=== PATIENT | male | born 1940 | race Caucasian/White ===

== ENCOUNTER 2017-11-12 08:23 | Inpatient (IN) | payer OTHER ==
[~2017-11-12] VITALS: Ht 175.3 cm; Wt 76.7 kg
[~2017-11-12 08:23] MED LIST: CEPHALEXIN500 M1 PO; DAILY VITAMIN1 EAC3 PO; KEFLEX500 MG PO; LISINOPRIL2.5 MG PO; METOPROLOL TART25 MG PO; NAPROXEN250 MG PO; NEXIUM40 MG PO; SIMVASTATIN40 MG PO; THIAMINE HCL100 MG PO; ULTRACET TABLE1 EACH PO; VITAMIN B-121000 MC1 PO; VITAMIN C500 M1 PO
[2017-11-12] MEDS: ASPIRIN 81 MG CHEW TAB PO ONE ×2 (08:38→08:45)
[2017-11-12 08:39] LABS: BASOPHILS # (AUTO) 0.1 (0.0-0.1); BASOPHILS % 0.4 % (0.0-1.0); EOSINOPHILS # (AUTO) 0.7 (0.0-0.4); EOSINOPHILS % 4.2 % (0.0-6.0); HEMATOCRIT 35.7 % (38.2-49.6); HEMOGLOBIN 11.9 g/dL (14.0-18.0); LYMPHOCYTES # (AUTO) 0.8 (1.0-3.2); LYMPHOCYTES % 5.1 % (18.0-39.1); MEAN CORPUSCULAR HEMOGLOBIN 28.9 pg (28-32); MEAN CORPUSCULAR HGB CONC 33.3 g/dL (31-35); MEAN CORPUSCULAR VOLUME 86.7 fL (81-99); MONOCYTES # (AUTO) 1.4 (0.2-0.8); MONOCYTES % 8.3 % (4.4-11.3); NEUTROPHILS # (AUTO) 13.6 (2.1-6.9); NEUTROPHILS % 81.5 % (38.7-80.0); PLATELET COUNT 356 x10e3/uL (140-360); RED BLOOD COUNT 4.12 x10e6/uL (4.3-5.7); RED CELL DISTRIBUTION WIDTH 13.6 % (11.7-14.4)
[2017-11-12 09:00] LABS: ALANINE AMINOTRANSFERASE 9 IU/L (0-55); ALBUMIN 2.6 g/dL (3.5-5.0); ALBUMIN/GLOBULIN RATIO 0.6 (0.8-2.0); ALKALINE PHOSPHATASE 68 IU/L (40-150); ANION GAP 15.6 mmol/L (8-16); BLOOD UREA NITROGEN 9 mg/dL (7-26); BUN/CREATININE RATIO 15 (6-25); CALCIUM 8.9 mg/dL (8.4-10.2); CARBON DIOXIDE 21 mmol/L (22-29); CHLORIDE 104 mmol/L (98-107); CREATINE KINASE 73 IU/L (30-200); CREATININE, SERUM 0.59 mg/dL (0.72-1.25); EST GLOMERULAR FILTRATION RATE > 60 ML/MIN (60-); GLUCOSE 156 mg/dL (74-118); LIPASE 7 U/L (8-78); POTASSIUM 3.6 mmol/L (3.5-5.1); SODIUM 137 mmol/L (136-145)
--- NOTE | 2017-11-12 10:23 | Diagnostic Imaging Report ---
PROCEDURE: CT scan of the chest WITH intravenous contrast, using pulmonary emboli protocol. TECHNIQUE: The chest was scanned utilizing a multidetector helical scanner from the lung apex through the level of the adrenal glands after the IV administration of 75 cc of Isovue 370. Coronal and sagittal multiplanar reformations were obtained. DLP: 541.94 mGy-cm COMPARISON: Chest x-ray dated 02/06/2014 INDICATIONS: SUDDEN ONSET SHORTNESS OF BREATH FINDINGS: Lines/tubes: None. Lungs and Airways: Severe changes of emphysema with scattered areas of bronchiectasis and pulmonary fibrosis. New mixed solid and cystic consolidation involving the right upper lobe. No CTA evidence of pulmonary emboli. Pleura: The pleural spaces are clear. Heart and mediastinum: The thyroid gland is normal. No significant mediastinal, hilar or axillary lymphadenopathy is seen. The heart and pericardium are within normal limits. Soft tissues: Normal. Abdomen: Limited contrast-enhanced views of the upper abdomen show no abnormality within the visualized liver, spleen, pancreas or kidneys. Small calcified gall stone. The adrenal glands are normal. Bones: Degenerative changes of the spine and shoulders. IMPRESSION: 1. No CTA evidence of pulmonary emboli. 2. Severe emphysematous changes with bronchiectasis and pulmonary fibrosis. 3. Compared to a prior chest x-ray there is new mixed cystic and solid consolidation in the right upper lobe. 4. Tiny calcified gallstone. Miah Maldonado D.O. Dictated by: Miah Maldonado D.O. on 11/12/2017 at 10:28 Electronically approved by: Miah Maldonado D.O. on 11/12/2017 at 10:28
[2017-11-12] MEDS ORDERED: VANCOMYCIN 1GM/NS 250 ML 250 ML IV ONE (11:45)
[2017-11-12] MEDS ORDERED: CEFEPIME HCL 1 GM VIAL IV ONE (12:00)
[2017-11-12] MEDS ORDERED: SODIUM CHLORIDE 0.9% 100 ML 100 ML ONE (12:47)
[2017-11-12] MEDS ORDERED: IOPAMIDOL 370 MG/ML 200 ML INFUS..BTL INJ ONE (12:47)
--- NOTE | 2017-11-12 14:58 | Consultation ---
DATE OF CONSULTATION: November 12, 2017 PULMONARY CONSULTATION Patient of [facility], Dr. Johnson, Dr. Bolanos. Charming but unfortunate 76-year-old gentleman, admitted with cough, progressive shortness of breath for 5 days. Cough productive of green sputum. He was last seen in the office in July of last year. 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 He has a history of diverticular disease, history of NC in 2017 and had a coronary stent. HE IS ALLERGIC TO ZETIA AND METFORMIN. His home medications include Keflex, B12, Nexium, lisinopril, Lopressor, Zocor, Naprosyn. He has had a ventral hernia repair. Smoked 1-1/2 packs a day for 40 years but has quit. 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 Has been losing weight. Accompanied by his . Seen in the emergency room. PHYSICAL EXAMINATION GENERAL: A frail white male in good spirits. VITAL SIGNS: Afebrile. Pulse 82, respirations 20, blood pressure 106/64. HEAD: Normocephalic, atraumatic. EYES: Extraocular movements intact. LUNGS: Bilateral rhonchi. HEART: Regular rhythm. ABDOMEN: Nontender. EXTREMITIES: Chronic wound tibia. Anemia apparently of chronic disease. Hemoglobin 11.9. Normal indices. White count elevated at 16.61. CT scan reveals a cavity in the right upper lobe. He has had bullous changes and fibrosis in the past. This may represent pneumonia surrounding a bullae but true cavity is suspected. Will obtain sputum studies, QuantiFERON test, plan a bronchoscopy. Will attempt to obtain diagnosis with sputum studies. Agree with empiric antibiotics. Thank you for this kind referral. Job#: [id number] JALEESA
[2017-11-12] MEDS ORDERED: ALBUTEROL/IPRATROPIUM 3 ML NEB NEB PRN (17:30)
[2017-11-12] MEDS ORDERED: BENZONATATE 100 MG CAP PO PRN (17:30)
--- NOTE | 2017-11-12 17:56 | History and Physical ---
PCP: Dr. Hang Johnson CHIEF COMPLAINT: Shortness of breath, wheezing and cough for the past week. HISTORY: Patient is a 76-year-old male with increasing cough and shortness breath for the past week. Cough is productive of green sputum. The patient was last seen by Dr. Vasques back in July last year. The patient does have chronic osteomyelitis of the tibia years and now on therapy with Keflex. He also has diverticular disease. He also has COPD. The patient was an ex-smoker. He is otherwise stable at this time. PAST MEDICAL HISTORY: COPD, diabetes, hypertension, chronic osteomyelitis as above, on chronic suppression treatment, dyslipidemia, osteoarthritis. PAST SURGICAL HISTORY: Repair of incarcerated of ventral hernia with mesh. SOCIAL HISTORY: The patient lives at home. ALLERGIES: NO KNOWN ALLERGY. HOME MEDICATIONS: List is reviewed. REVIEW OF SYSTEMS: Shortness of breath, productive cough, wheezing, and fever. PHYSICAL EXAMINATION VITAL SIGNS: Temperature is 98, blood pressure 131/86, pulse rate 82, respirations 22. GENERAL: The patient is not in acute distress. He is awake. HEENT: Normocephalic, atraumatic and anicteric. NECK: Supple grossly. PULMONARY: Bilateral coarses and rhonchi. Diminished breath sounds. CARDIOVASCULAR: S1 and S2. Regular rate and rhythm. ABDOMEN: Soft. Positive bowel sounds. Grossly nontender. No distention. EXTREMITIES: No cyanosis or edema. NEUROLOGICAL: No gross focal deficit. CT scan showed that he had a mixed cystic and solid consolidation of the right upper lobe. Severe emphysematous changes. LABORATORY: WBC is 16.6, hemoglobin 11.9, hematocrit 35.7, and platelets are 366,000. CHEMISTRY: Sodium 137, potassium 3.6, chloride 104, bicarb is 21, BUN 9, creatinine 0.6, glucose 156. IMPRESSION 1. Right upper lobe pneumonia. 2. Acute exacerbation of chronic obstructive pulmonary disease. 3. Acute hypoxia. 4. Leukocytosis. PLAN: Continue with IV antibiotics. Nebulizer treatment. Consult with Dr. Spencer Vasques. The patient has been seen. Resume home medications. Will monitor the patient closely and repeat lab work. Job#: [id number] [place]
[2017-11-12] MEDS: METOPROLOL TARTRATE 25 MG TAB PO SCH (18:45)
[2017-11-12] MEDS ORDERED: ALBUTEROL SULF 0.083% NEB SOLN 3 ML NEB NEB SCH (19:00)
[2017-11-12] MEDS: ALBUTEROL/IPRATROPIUM 3 ML NEB NEB SCH (19:00)
[2017-11-12] MEDS: VANCOMYCIN 1GM/NS 250 ML 250 ML IV SCH (19:05)
[2017-11-12 19:45] VITALS: BP 126/65
[2017-11-12 20:00] VITALS: BP 126/65
[2017-11-12] MEDS: METHYLPREDNISOLONE SOD SUCC 40 MG/ML VIAL IV SCH (20:00)
[2017-11-12] MEDS: PIPER-TAZ 3.375 GM 50 ML IV SCH (20:00)
[2017-11-12 21:00] VITALS: BP 126/65
[2017-11-12] MEDS: LISINOPRIL 2.5 MG TAB PO SCH (21:00)
[2017-11-12] MEDS: BENZONATATE 100 MG CAP PO SCH (21:10)
[2017-11-12] MEDS: SIMVASTATIN 40 MG TAB PO SCH (21:10)
[2017-11-13] VITALS: BP 97/51
[2017-11-13] MEDS: ALBUTEROL/IPRATROPIUM 3 ML NEB NEB SCH ×4 (01:00→19:00)
[2017-11-13] MEDS: PIPER-TAZ 3.375 GM 50 ML IV SCH ×3 (03:10→18:00)
[2017-11-13] MEDS: METHYLPREDNISOLONE SOD SUCC 40 MG/ML VIAL IV SCH ×3 (03:10→21:23)
[2017-11-13 04:00] VITALS: BP 111/58
[2017-11-13 05:18] LABS: BASOPHILS % 0.2 % (0.0-1.0); EOSINOPHILS % 0.2 % (0.0-6.0); HEMATOCRIT 35.5 % (38.2-49.6); HEMOGLOBIN 11.5 g/dL (14.0-18.0); LYMPHOCYTES # (AUTO) 0.8 (1.0-3.2); LYMPHOCYTES % 6.9 % (18.0-39.1); MEAN CORPUSCULAR HEMOGLOBIN 28.7 pg (28-32); MEAN CORPUSCULAR HGB CONC 32.4 g/dL (31-35); MEAN CORPUSCULAR VOLUME 88.5 fL (81-99); MONOCYTES # (AUTO) 0.3 (0.2-0.8); MONOCYTES % 2.2 % (4.4-11.3); NEUTROPHILS # (AUTO) 10.6 (2.1-6.9); NEUTROPHILS % 89.9 % (38.7-80.0); PLATELET COUNT 370 x10e3/uL (140-360); RED BLOOD COUNT 4.01 x10e6/uL (4.3-5.7); RED CELL DISTRIBUTION WIDTH 13.4 % (11.7-14.4)
[2017-11-13 05:35] LABS: INR 1.34; PROTHROMBIN TIME 15.6 seconds (11.9-14.5)
[2017-11-13 05:36] LABS: PARTIAL THROMBOPLASTIN TIME 40.7 seconds (23.8-35.5)
[2017-11-13 05:50] LABS: ALANINE AMINOTRANSFERASE 9 IU/L (0-55); ALBUMIN 2.3 g/dL (3.5-5.0); ALBUMIN/GLOBULIN RATIO 0.5 (0.8-2.0); ALKALINE PHOSPHATASE 62 IU/L (40-150); BLOOD UREA NITROGEN 9 mg/dL (7-26); BUN/CREATININE RATIO 15 (6-25); CALCIUM 8.8 mg/dL (8.4-10.2); CARBON DIOXIDE 26 mmol/L (22-29); CHLORIDE 105 mmol/L (98-107); CREATININE, SERUM 0.59 mg/dL (0.72-1.25); EST GLOMERULAR FILTRATION RATE > 60 ML/MIN (60-); GLUCOSE 159 mg/dL (74-118); SODIUM 141 mmol/L (136-145)
[2017-11-13 08:00] VITALS: BP 105/64
[2017-11-13] MEDS: BENZONATATE 100 MG CAP PO SCH ×3 (09:00→21:23)
[2017-11-13] MEDS: PANTOPRAZOLE SOD 40 MG TABEC PO SCH (09:00)
[2017-11-13] MEDS: ASCORBIC ACID 500 MG TAB PO SCH (09:00)
[2017-11-13] MEDS: METOPROLOL TARTRATE 25 MG TAB PO SCH ×2 (09:00→17:00)
[2017-11-13] MEDS: CYANOCOBALAMIN 1,000 MCG TAB PO SCH (09:00)
[2017-11-13] MEDS ORDERED: SODIUM CHLORIDE 0.9% 250ML 250 ML ONE (09:16)
[2017-11-13 11:45] VITALS: BP 103/66
[2017-11-13 16:00] VITALS: BP 106/66
--- NOTE | 2017-11-13 16:21 | Progress Note ---
DATE: November 13, 2017 SUBJECTIVE: The patient is feeling much better today. He had some cough in the middle of the night. He is afebrile. His vital signs have been stable. He reports eating very well and actually eating a lot of sweets. OBJECTIVE VITAL SIGNS: Temperature 97.2, pulse 66, respiratory rate 18, blood pressure 103/66, pulse oximetry 94% on room air. GENERAL: In no acute distress, alert and oriented x3, cooperative on examination. HEENT: Head is normocephalic, atraumatic. Eyes: Pupils equal, round and reactive to light bilaterally. Extraocular movements intact bilaterally. Throat with no evidence of erythema or exudates in the posterior pharynx. He has poor dentition. NECK: Supple with good range of motion. PULMONARY: Clear to auscultation bilaterally with no wheezing, no rales, no rhonchi, no crackles appreciated. CARDIOVASCULAR: Positive S1 and S2, no murmurs, rubs or gallops appreciated. ABDOMEN: Soft, nondistended, nontender on palpation. Bowel sounds were present. MUSCULOSKELETAL: Strength 5/5 throughout, no evidence of musculoskeletal deficit on exam. No weakness appreciated. NEUROLOGIC: Cranial nerves II-XII grossly intact. No evidence of neurological deficit on examination. SKIN: Intact. Warm to touch. Good capillary refill. EXTREMITIES: No edema. Good range of motion throughout. PSYCHIATRIC: Normal affect and mood. LABORATORY DATA: White count 11.8, hemoglobin 11.5, hematocrit 35, platelets 370,000. Coagulation: PT 16, INR 1.3, PTT 40. Chemistry: Sodium 141, potassium 4, chloride 105, bicarb 26, anion gap of 14, BUN 9, creatinine 0.59. Calcium 8.8. LFTs were normal. Lipase is 7. Albumin is 2.3. MICROBIOLOGY: Acid fast bacilli sputum is pending. His initial sputum culture shows no organisms. IMPRESSION 1. Right upper lobe pneumonia. 2. Acute exacerbation of chronic obstructive pulmonary disease. 3. Acute hypoxia, now off of oxygen. 4. Leukocytosis. PLAN: At this time, continue with IV antibiotics, steroids, nebulizer treatments. Pulmonary following. Scheduled for bronchoscopy on Thursday. Continue same home medications. Will continue to follow. We are going to add Robitussin with codeine for cough. Job#: [id number] JONNA
[2017-11-13] MEDS: GUAIFENESIN/CODEINE 10 ML CUP PO PRN (16:25)
[2017-11-13] MEDS: VANCOMYCIN 1GM/NS 250 ML 250 ML IV SCH (17:04)
--- NOTE | 2017-11-13 19:54 | Consultation ---
DATE OF CONSULTATION: November 13, 2017 HISTORY OF PRESENT ILLNESS: Mr. Weeks is a 76-year-old gentleman who was admitted on November 12 with shortness of breath and cough for a week. The patient has history of COPD. He was seen by Dr. Vasques as an outpatient. He has history of osteomyelitis of the tibia years ago. He is on Keflex postop treatment. Patient has history of COPD, diabetes mellitus, hypertension and osteomyelitis, chronic hyperlipidemia, osteoarthritis, history of ventral hernia repair, mesh placement. He comes in with shortness of breath and cough as mentioned above. The patient is admitted and infectious disease was consulted. The plan is for him to have bronchoscopy on Thursday. PAST MEDICAL HISTORY: As above. PAST SURGICAL HISTORY: As above. ALLERGIES: NKA. SOCIAL HISTORY: Does not smoke, no drug abuse, no alcohol abuse. PHYSICAL EXAMINATION: GENERAL: He is currently alert, oriented and does not seem to be in acute distress. VITALS: Stable. Currently afebrile. HEENT: Not icteric. NECK: Supple. CHEST: Few crackles on the right. HEART: S1 and S2. No murmur. ABDOMEN: Soft. Bowel sounds present. EXTREMITIES: No edema. SKIN: No rash. LABORATORY DATA: White count admission was 16.6 came down to 11.8. Sodium 14, potassium 4.0, creatinine 0.59, albumin of 2.3. CT of the chest was done and showed no evidence for embolism, severe emphysematous changes and bronchiectasis, fibrosis with consolidation in right upper lobe. IMPRESSION: Pneumonia for 1 week now with concern about underlying pathophysiology, malignancy, etc. Concerned about other infection, although he has only been sick for a week. I RECOMMENDATIONS: I agree with bronchoscopy. I agree with vancomycin and Zosyn. Will discus with Dr. Vasques and follow with you. Job#: [id number]
[2017-11-13 20:17] VITALS: BP 113/66
[2017-11-13] MEDS: LISINOPRIL 2.5 MG TAB PO SCH (21:00)
[2017-11-13] MEDS: SIMVASTATIN 40 MG TAB PO SCH (21:23)
[2017-11-14 00:08] VITALS: BP 105/58
[2017-11-14] MEDS: ALBUTEROL/IPRATROPIUM 3 ML NEB NEB SCH ×4 (01:00→19:00)
[2017-11-14] MEDS: PIPER-TAZ 3.375 GM 50 ML IV SCH ×3 (02:03→17:24)
[2017-11-14 04:42] LABS: BASOPHILS % 0.2 % (0.0-1.0); HEMOGLOBIN 11.4 g/dL (14.0-18.0); LYMPHOCYTES # (AUTO) 1.2 (1.0-3.2); LYMPHOCYTES % 6.8 % (18.0-39.1); MEAN CORPUSCULAR HEMOGLOBIN 28.5 pg (28-32); MEAN CORPUSCULAR HGB CONC 32.6 g/dL (31-35); MEAN CORPUSCULAR VOLUME 87.5 fL (81-99); MONOCYTES # (AUTO) 0.8 (0.2-0.8); MONOCYTES % 4.4 % (4.4-11.3); NEUTROPHILS # (AUTO) 14.8 (2.1-6.9); NEUTROPHILS % 87.7 % (38.7-80.0); PLATELET COUNT 432 x10e3/uL (140-360); RED CELL DISTRIBUTION WIDTH 13.3 % (11.7-14.4)
[2017-11-14 05:01] LABS: ANION GAP 10.8 mmol/L (8-16); BLOOD UREA NITROGEN 14 mg/dL (7-26); BUN/CREATININE RATIO 24 (6-25); CALCIUM 8.4 mg/dL (8.4-10.2); CARBON DIOXIDE 26 mmol/L (22-29); CHLORIDE 106 mmol/L (98-107); CREATININE, SERUM 0.58 mg/dL (0.72-1.25); EST GLOMERULAR FILTRATION RATE > 60 ML/MIN (60-); GLUCOSE 205 mg/dL (74-118); POTASSIUM 3.8 mmol/L (3.5-5.1); SODIUM 139 mmol/L (136-145)
[2017-11-14] MEDS: GUAIFENESIN/CODEINE 10 ML CUP PO PRN (05:24)
[2017-11-14 05:28] VITALS: BP 123/73
[2017-11-14 08:00] VITALS: BP_SYST 104; BP_SYST 123; BP_DIAS 63; BP_DIAS 73
[2017-11-14] MEDS: ASCORBIC ACID 500 MG TAB PO SCH (09:00)
[2017-11-14] MEDS: METHYLPREDNISOLONE SOD SUCC 40 MG/ML VIAL IV SCH ×2 (09:00→20:46)
[2017-11-14] MEDS: BENZONATATE 100 MG CAP PO SCH ×3 (09:00→20:46)
[2017-11-14] MEDS: METOPROLOL TARTRATE 25 MG TAB PO SCH ×2 (09:00→17:00)
[2017-11-14] MEDS: CYANOCOBALAMIN 1,000 MCG TAB PO SCH (09:00)
[2017-11-14] MEDS: PANTOPRAZOLE SOD 40 MG TABEC PO SCH (09:00)
[2017-11-14 12:00] VITALS: BP 130/81
[2017-11-14 16:00] VITALS: BP_SYST 113; BP_SYST 130; BP_DIAS 78; BP_DIAS 81
[2017-11-14] MEDS: VANCOMYCIN 1GM/NS 250 ML 250 ML IV SCH (17:24)
[2017-11-14 20:11] VITALS: BP 108/64
--- NOTE | 2017-11-14 20:42 | Progress Note ---
DATE: I am covering for Dr. Bolanos. SUBJECTIVE: The patient is doing well with no other complaints. He is afebrile. Vital signs were stable. He is tolerating a diet well. OBJECTIVE VITAL SIGNS: Temperature 96.2, pulse 80, respiratory rate 21, blood pressure 130/81, pulse ox 97%. He is on 2 L nasal cannula. GENERAL: Not in acute distress. Alert and oriented times 3. Cooperative on examination. HEENT: Head is normocephalic and atraumatic. Eyes: Pupils equal, round and reactive to light bilaterally. Extraocular movements intact bilaterally. NECK: Supple. Good range of motion. Throat with no evidence of any erythema or exudates in the posterior pharynx. Has poor dentition. PULMONARY: Clear to auscultation bilaterally. No wheezing. No rales. No rhonchi. No crackles appreciated. CARDIOVASCULAR: Positive S1 and S2. No murmurs, rubs or gallops. ABDOMEN: Soft, nondistended and nontender to palpation. Bowel sounds present. EXTREMITIES: No edema. Good range of motion throughout. LAB FINDINGS: Show a white count of 16, hemoglobin 11.4, hematocrit 35, and platelets 432,000. Chemistry: Sodium 139, potassium 3.8, chloride 106, bicarb 26, anion gap of 10, BUN 14, glucose is 205. MICROBIOLOGY: Sputum culture with gram-negative rods. Acid-fast bacilli is still pending. IMAGING STUDIES: None. IMPRESSION 1. Right upper lobe pneumonia. 2. Acute exacerbation of chronic obstructive pulmonary disease. 3. Acute hypoxemia, now off of oxygen. 4. Leukocytosis. 5. Concern for underlying tuberculosis. PLAN: At this time, continue with IV antibiotics, steroids and neb treatments. He is scheduled for bronchoscopy on Thursday. ID is also consulted. They will follow through, as well as with pulmonary. Job#: [id number] JEANETTE
[2017-11-14] MEDS: LISINOPRIL 2.5 MG TAB PO SCH (20:46)
[2017-11-14] MEDS: SIMVASTATIN 40 MG TAB PO SCH (21:00)
[2017-11-15] VITALS (7 sets, daily range): BP systolic 101–134; BP diastolic 55–61
[2017-11-15] MEDS: ALBUTEROL/IPRATROPIUM 3 ML NEB NEB SCH ×4 (01:00→19:00)
[2017-11-15] MEDS: PIPER-TAZ 3.375 GM 50 ML IV SCH ×3 (02:04→17:15)
[2017-11-15] MEDS: ASCORBIC ACID 500 MG TAB PO SCH (09:00)
[2017-11-15] MEDS: BENZONATATE 100 MG CAP PO SCH ×3 (09:00→20:33)
[2017-11-15] MEDS: METOPROLOL TARTRATE 25 MG TAB PO SCH ×2 (09:00→16:07)
[2017-11-15] MEDS: CYANOCOBALAMIN 1,000 MCG TAB PO SCH (09:00)
[2017-11-15] MEDS: PANTOPRAZOLE SOD 40 MG TABEC PO SCH (09:00)
[2017-11-15] MEDS: METHYLPREDNISOLONE SOD SUCC 40 MG/ML VIAL IV SCH ×2 (09:00→20:32)
[2017-11-15 17:44] LABS: CLARITY,URINE CLEAR (CLEAR); COLOR,URINE YELLOW (YELLOW)
[2017-11-15 17:45] LABS: BILIRUBIN,URINE NEGATIVE (NEGATIVE); KETONES,URINE NEGATIVE (NEGATIVE); LEUKOCYTE ESTERASE ,URINE NEGATIVE (NEGATIVE); NITRITE,URINE NEGATIVE (NEGATIVE); PROTEIN,URINE DIPSTICK NEGATIVE (NEGATIVE); URINE UROBILINOGEN 0.2 mg/dL (0.2 - 1)
--- NOTE | 2017-11-15 19:22 | Progress Note ---
DATE: November 15, [address] Bolanos. SUBJECTIVE: The patient is doing well with no complaints. He is scheduled for bronchoscopy tomorrow. OBJECTIVE VITAL SIGNS: Temperature is 96.2, pulse 70, respiratory rate is 19, blood pressure is 115/58, pulse ox 95%. He is on 2 L nasal cannula. LAB FINDINGS: None. MICROBIOLOGY: Sputum culture was positive for Klebsiella. Acid fast base bacilli are still pending. The AFB smear final was negative. IMAGING STUDIES: None. PHYSICAL EXAMINATION GENERAL: Not in acute distress, alert and oriented times 3. Cooperative on examination. HEENT: Head is normocephalic, atraumatic. Eyes, pupils are equal and reactive to light bilaterally. Extraocular movements intact bilaterally. Posterior pharynx has good dentition. NECK: Supple. Good range of motion throughout. No evidence of any erythema or exudates. PULMONARY: Clear to auscultation bilaterally. No wheezing, no rales, no rhonchi, no crackles appreciated. CARDIOVASCULAR: Positive S1, S2. No murmurs, rubs or gallops appreciated. ABDOMEN: Soft, nondistended, nontender to palpation. Bowel sounds present. MUSCULOSKELETAL: Strength is 5/5 throughout. No evidence of any new muscle deficits on examination. No weakness appreciated. NEUROLOGICAL: Cranial nerves II through XII grossly intact. No evidence of any neurological deficits on exam. SKIN: Intact. Warm to touch. Good capillary refill. PSYCHIATRIC: Normal affect and mood. EXTREMITIES: No edema. Good range of motion throughout. IMPRESSION 1. Right upper lobe pneumonia, found to be klebsiella. 2. Acute exacerbation of chronic obstructive pulmonary disease. 3. Acute hypoxemia, off of oxygen. 4. Leukocytosis. 5. Acid fast bacilli found to be negative. PLAN: At this time, will continue with IV antibiotics. His Klebsiella pneumonia is pansensitive. Will stop IV vancomycin for now and continue with Zosyn. He is scheduled for bronchoscopy tomorrow by pulmonary. Continue with steroids, neb treatments and antibiotics. ID was consulted as well. Will also follow up with pulmonary. Dr. Bolanos will be available tomorrow. Job#: [id number]
[2017-11-15 19:29] LABS: BACTERIA,URINE RARE /HPF; RBC,URINE 0-5 /HPF (0-5); WBC,URINE (MAN) 0-5 /HPF (0-5)
[2017-11-15] MEDS: SIMVASTATIN 40 MG TAB PO SCH (20:33)
[2017-11-15] MEDS: LISINOPRIL 2.5 MG TAB PO SCH (20:33)
[2017-11-16] VITALS (8 sets, daily range): BP systolic 104–129; BP diastolic 52–72
[2017-11-16] MEDS: ALBUTEROL/IPRATROPIUM 3 ML NEB NEB SCH ×4 (01:00→19:00)
[2017-11-16] MEDS: PIPER-TAZ 3.375 GM 50 ML IV SCH ×3 (02:26→17:33)
[2017-11-16] MEDS ORDERED: OXYMETAZOLINE HCL 0.05% NAS 1 SPRAY BTL ONE (08:37)
[2017-11-16] MEDS ORDERED: EPINEPHRINE HCL INJ 1 MG/ML AMP ONE (08:37)
[2017-11-16] MEDS ORDERED: LIDOCAINE HCL 2% 30 ML TUBE ONE (08:37)
[2017-11-16] MEDS ORDERED: LIDOCAINE HCL 4% 50 ML BTL ONE (08:37)
--- NOTE | 2017-11-16 10:16 | Operative Report ---
DATE OF PROCEDURE: PROCEDURE: Bronchoscopy. This is a patient of Dr. Johnson, Dr. Bolanos and Dr. Jesus. Patient has a history of pulmonary fibrosis and emphysema with new right upper lobe cavitary infiltrate. There was suspicion for tuberculosis. Because of the new infiltrate, a decision was made to proceed with bronchoscopy. One AFB smear was negative. Others are pending. MAC anesthesia was provided by Dr. Plasencia. There were moderate inflammation of the vocal cords and moderate tracheobronchitis. Thick secretions were noted, particularly in the right upper lobe bronchus. Washings, lavage, and brushings were obtained under fluoroscopic control from the right upper lobe. The remainder of the bronchial tree was also examined. Brushings were sent for cytologic examination as well as cultures. The patient tolerated the procedure well and was taken to the recovery area. Chest x-ray is pending. Job#: [id number]
--- NOTE | 2017-11-16 11:01 | Diagnostic Imaging Report ---
PROCEDURE: A single AP view of the chest. COMPARISON: CT Chest 11/12/17. INDICATIONS: STATUS POST BRONCHOSCOPY FINDINGS: Lines/tubes: None. Lungs: Severe emphysematous and fibrotic changes of the lungs and bronchiectasis. Low lung volumes. Accounting for differences in technique, there is increasing consolidation in the right upper lung and new consolidation in the left mid and lower lung since CT on 11/12/17. Pleura: There is no pleural effusion or pneumothorax. Heart and mediastinum: The cardiomediastinal silhouette is unchanged. Bones: No acute bony abnormality. Severe bilateral glenohumeral and acromioclavicular joint degenerative changes with bone on bone contact. IMPRESSION: Severe emphysematous and fibrotic changes of the lungs. Increasing consolidation in the right upper lung and new consolidation in the left lower lung since CT on 11/12/17 which could reflect multifocal pneumonia. Dictated by: TINO STEWART M.D. on 11/16/2017 at 11:07 Electronically approved by: TINO STEWART M.D. on 11/16/2017 at 11:07
[2017-11-16 11:32] LABS: BODY FLUID APPEARANCE SL.CLOUDY; BODY FLUID COLOR COLORLESS; BODY FLUID TYPE LAVAGE
[2017-11-16 11:33] LABS: RBC,BODY FLUID 64 cells/uL; WBC,BODY FLUID 333 cells/uL
[2017-11-16 11:42] LABS: LYMPHOCYTES,BODY FLUID 10 %; MONO/MACROPHG,BODY FLUID 1 %; NEUTROPHILS,BODY FLUID 89 %
[2017-11-16] MEDS: METOPROLOL TARTRATE 25 MG TAB PO SCH ×2 (11:45→17:33)
[2017-11-16] MEDS: METHYLPREDNISOLONE SOD SUCC 40 MG/ML VIAL IV SCH ×2 (11:45→20:52)
[2017-11-16] MEDS: ASCORBIC ACID 500 MG TAB PO SCH (11:46)
[2017-11-16] MEDS: CYANOCOBALAMIN 1,000 MCG TAB PO SCH (11:46)
[2017-11-16] MEDS: PANTOPRAZOLE SOD 40 MG TABEC PO SCH (11:46)
[2017-11-16] MEDS: BENZONATATE 100 MG CAP PO SCH ×3 (11:46→20:52)
[2017-11-16] MEDS ORDERED: FENTANYL CITRATE/PF 100MCG/2 ML INJ ONE (13:49)
[2017-11-16] MEDS ORDERED: SEVOFLURANE INHAL SOLN 250 ML PEN BTL ONE (17:39)
[2017-11-16] MEDS ORDERED: PROPOFOL IV EMULSION 10 MG/ML 20 ML VIAL ONE (17:39)
[2017-11-16] MEDS ORDERED: LIDOCAINE HCL 2% LOCAL INJ 5 ML SDV VIAL INJ ONE (17:39)
[2017-11-16] MEDS ORDERED: DEXAMETHASONE SOD PHOS INJ 4 MG/ML VIAL ONE (17:39)
[2017-11-16] MEDS ORDERED: GLYCOPYRROLATE INJ 1MG/ 5 ML SYR ONE (17:39)
[2017-11-16] MEDS: SIMVASTATIN 40 MG TAB PO SCH (20:52)
[2017-11-16] MEDS: LISINOPRIL 2.5 MG TAB PO SCH (21:00)
[2017-11-17] VITALS (8 sets, daily range): BP systolic 114–138; BP diastolic 56–73
[2017-11-17] MEDS: ALBUTEROL/IPRATROPIUM 3 ML NEB NEB SCH ×4 (01:00→19:40)
[2017-11-17] MEDS: PIPER-TAZ 3.375 GM 50 ML IV SCH ×3 (02:00→16:34)
[2017-11-17] MEDS ORDERED: SODIUM CHLORIDE 0.9% 250ML 250 ML ONE (02:32)
[2017-11-17] MEDS: BENZONATATE 100 MG CAP PO SCH ×3 (09:00→20:19)
[2017-11-17] MEDS: METOPROLOL TARTRATE 25 MG TAB PO SCH (09:00)
[2017-11-17] MEDS: PANTOPRAZOLE SOD 40 MG TABEC PO SCH (09:00)
[2017-11-17] MEDS: METHYLPREDNISOLONE SOD SUCC 40 MG/ML VIAL IV SCH (09:00)
[2017-11-17] MEDS: ASCORBIC ACID 500 MG TAB PO SCH (09:00)
[2017-11-17] MEDS: CYANOCOBALAMIN 1,000 MCG TAB PO SCH (09:00)
[2017-11-17] MEDS: SIMVASTATIN 40 MG TAB PO SCH (20:19)
[2017-11-17] MEDS: LISINOPRIL 2.5 MG TAB PO SCH (20:19)
[2017-11-18] VITALS (7 sets, daily range): BP systolic 101–128; BP diastolic 59–96
[2017-11-18] MEDS: PIPER-TAZ 3.375 GM 50 ML IV SCH ×2 (02:08→10:48)
[2017-11-18] MEDS: GUAIFENESIN/CODEINE 10 ML CUP PO PRN (04:03)
[2017-11-18 04:55] LABS: BASOPHILS # (AUTO) 0.1 (0.0-0.1); BASOPHILS % 0.3 % (0.0-1.0); EOSINOPHILS # (AUTO) 0.1 (0.0-0.4); EOSINOPHILS % 0.4 % (0.0-6.0); HEMATOCRIT 38.5 % (38.2-49.6); HEMOGLOBIN 12.4 g/dL (14.0-18.0); LYMPHOCYTES # (AUTO) 2.9 (1.0-3.2); LYMPHOCYTES % 13.9 % (18.0-39.1); MEAN CORPUSCULAR HEMOGLOBIN 28.7 pg (28-32); MEAN CORPUSCULAR HGB CONC 32.2 g/dL (31-35); MEAN CORPUSCULAR VOLUME 89.1 fL (81-99); MONOCYTES % 9.5 % (4.4-11.3); NEUTROPHILS # (AUTO) 15.5 (2.1-6.9); NEUTROPHILS % 74.2 % (38.7-80.0); PLATELET COUNT 512 x10e3/uL (140-360); RED BLOOD COUNT 4.32 x10e6/uL (4.3-5.7); RED CELL DISTRIBUTION WIDTH 13.6 % (11.7-14.4)
[2017-11-18 05:21] LABS: ANION GAP 14.3 mmol/L (8-16); BLOOD UREA NITROGEN 16 mg/dL (7-26); BUN/CREATININE RATIO 23 (6-25); CALCIUM 8.4 mg/dL (8.4-10.2); CARBON DIOXIDE 29 mmol/L (22-29); CHLORIDE 102 mmol/L (98-107); CREATININE, SERUM 0.69 mg/dL (0.72-1.25); EST GLOMERULAR FILTRATION RATE > 60 ML/MIN (60-); GLUCOSE 120 mg/dL (74-118); POTASSIUM 3.3 mmol/L (3.5-5.1); SODIUM 142 mmol/L (136-145)
--- NOTE | 2017-11-18 06:28 | Diagnostic Imaging Report ---
EXAMINATION: CHEST SINGLE (PORTABLE) INDICATION: Pneumonia COMPARISON: 11/16/2017 FINDINGS: TUBES and LINES: None. LUNGS: Lungs are not well inflated. Interval improvement in alveolar and interstitial opacities with persistent predominantly right upper and left lower lobe airspace disease PLEURA: Small left pleural effusion HEART AND MEDIASTINUM: The cardiomediastinal silhouette is unremarkable. There are atherosclerotic calcifications within the aorta. BONES AND SOFT TISSUES: No acute osseous lesion. Soft tissues are unremarkable. UPPER ABDOMEN: No free air under the diaphragm. IMPRESSION: Mild interval improvement in multifocal infection predominantly involving the right upper and left lower lobes. Superimpose interstitial lung disease cannot be excluded Signed by: Dr. Guille Julien M.D. on 11/18/2017 6:24 AM
[2017-11-18] MEDS: ALBUTEROL/IPRATROPIUM 3 ML NEB NEB SCH ×4 (06:45→19:34)
[2017-11-18 07:52] LABS: BAND NEUTROPHILS % (MANUAL) 1 %; LYMPHOCYTES % (MANUAL) 15 % (19-48); MONOCYTES % (MANUAL) 7 % (3.4-9.0); NEUTROPHILS % (MANUAL) 77 % (40-74); PLATELET ESTIMATE SLIGHTLY INCREASED; PLATELET MORPHOLOGY COMMENT NORMAL; RBC MORPHOLOGY COMMENT NORMAL
[2017-11-18 07:53] LABS: ANISOCYTOSIS SLIGHT
[2017-11-18] MEDS: METHYLPREDNISOLONE SOD SUCC 40 MG/ML VIAL IV SCH (07:55)
[2017-11-18] MEDS: CYANOCOBALAMIN 1,000 MCG TAB PO SCH (07:56)
[2017-11-18] MEDS: BENZONATATE 100 MG CAP PO SCH ×3 (07:56→20:27)
[2017-11-18] MEDS: ASCORBIC ACID 500 MG TAB PO SCH (07:56)
[2017-11-18] MEDS: PANTOPRAZOLE SOD 40 MG TABEC PO SCH (07:56)
[2017-11-18] MEDS ORDERED: POTASSIUM CHLORIDE 20 MEQ TAB CR PO STA (08:54)
[2017-11-18] MEDS: NYSTATIN SUSPENSION 5 ML UDC PO SCH ×3 (11:22→23:26)
[2017-11-18] MEDS: CEFEPIME HCL 1 GM VIAL IV SCH (15:36)
[2017-11-18] MEDS: FLUCONAZOLE 100 MG TAB PO SCH (15:36)
[2017-11-18] MEDS: LISINOPRIL 2.5 MG TAB PO SCH (20:27)
[2017-11-18] MEDS: SIMVASTATIN 40 MG TAB PO SCH (20:27)
[2017-11-19] VITALS: BP 102/66
[2017-11-19] MEDS: ALBUTEROL/IPRATROPIUM 3 ML NEB NEB SCH ×3 (01:45→13:00)
[2017-11-19] MEDS: CEFEPIME HCL 1 GM VIAL IV SCH ×2 (03:20→15:35)
[2017-11-19 04:49] LABS: BASOPHILS % 0.1 % (0.0-1.0); EOSINOPHILS # (AUTO) 0.4 (0.0-0.4); HEMATOCRIT 36.8 % (38.2-49.6); HEMOGLOBIN 11.8 g/dL (14.0-18.0); LYMPHOCYTES # (AUTO) 2.2 (1.0-3.2); LYMPHOCYTES % 10.7 % (18.0-39.1); MEAN CORPUSCULAR HEMOGLOBIN 28.7 pg (28-32); MEAN CORPUSCULAR HGB CONC 32.1 g/dL (31-35); MEAN CORPUSCULAR VOLUME 89.5 fL (81-99); MONOCYTES # (AUTO) 1.8 (0.2-0.8); MONOCYTES % 8.8 % (4.4-11.3); NEUTROPHILS # (AUTO) 15.8 (2.1-6.9); NEUTROPHILS % 76.7 % (38.7-80.0); PLATELET COUNT 464 x10e3/uL (140-360); RED BLOOD COUNT 4.11 x10e6/uL (4.3-5.7); RED CELL DISTRIBUTION WIDTH 13.9 % (11.7-14.4)
[2017-11-19 04:55] VITALS: BP 106/68
[2017-11-19] MEDS: NYSTATIN SUSPENSION 5 ML UDC PO SCH ×2 (05:42→12:39)
[2017-11-19 06:40] LABS: EOSINOPHILS % (MANUAL) 2 % (0-7); LYMPHOCYTES % (MANUAL) 11 % (19-48); MONOCYTES % (MANUAL) 6 % (3.4-9.0); NEUTROPHILS % (MANUAL) 81 % (40-74)
[2017-11-19 06:41] LABS: PLATELET ESTIMATE ADEQUATE; PLATELET MORPHOLOGY COMMENT FEW LARGE; RBC MORPHOLOGY COMMENT NORMAL
[2017-11-19 07:20] VITALS: BP 103/58
[2017-11-19 07:39] LABS: ANION GAP 11.6 mmol/L (8-16); BLOOD UREA NITROGEN 13 mg/dL (7-26); BUN/CREATININE RATIO 21 (6-25); CALCIUM 8.4 mg/dL (8.4-10.2); CARBON DIOXIDE 28 mmol/L (22-29); CHLORIDE 102 mmol/L (98-107); CREATININE, SERUM 0.63 mg/dL (0.72-1.25); EST GLOMERULAR FILTRATION RATE > 60 ML/MIN (60-); GLUCOSE 134 mg/dL (74-118); POTASSIUM 3.6 mmol/L (3.5-5.1); SODIUM 138 mmol/L (136-145)
[2017-11-19] MEDS: BENZONATATE 100 MG CAP PO SCH ×2 (09:10→15:35)
[2017-11-19] MEDS: FLUCONAZOLE 100 MG TAB PO SCH (09:10)
[2017-11-19] MEDS: METHYLPREDNISOLONE SOD SUCC 40 MG/ML VIAL IV SCH (09:10)
[2017-11-19] MEDS: PANTOPRAZOLE SOD 40 MG TABEC PO SCH (09:10)
[2017-11-19] MEDS: CYANOCOBALAMIN 1,000 MCG TAB PO SCH (09:10)
[2017-11-19] MEDS: ASCORBIC ACID 500 MG TAB PO SCH (09:10)
[2017-11-19 09:48] VITALS: BP 103/58
[2017-11-19 13:11] VITALS: BP 117/68
--- NOTE | 2017-12-26 04:46 | Discharge Summary ---
FINAL DIAGNOSES 1. Streptococcus pneumonia, most consistent with throat swab. 2. Leukocytosis, resolved. 3. Status post bronchoscopy. SUMMARY: Patient is a 77-year-old male with recurrent leukocytosis. Patient was asymptomatic when he was admitted. He just recently went home with steroids and then subsequently presented with increasing WBC elevation. He had multiple workups done, the throat swab and bronchial wash showed some strep and Klebsiella. Patient also had multiple other tests as well. He did better with his pneumonia. The patient was subsequently discharged to home with antibiotics. He was stable. The patient is much improved with his status. He has oxygen at home. His WBC was 20.5 on steroids. He does have baseline COPD with acute exacerbation. He has also had pulmonary fibrosis as well. He continued with his treatment. The patient was stable. DISCHARGE MEDICATIONS As follows; 1. Medrol Dosepak for 7 days. 2. Nebulizer drip with DuoNeb. 3. Levaquin 5 mg daily for 5 days. 4. Diflucan 100 mg daily for 5 days. 5. Tessalon Perles p.r.n. 6. ProAir HFA p.r.n. The patient was stable, discharged home, and we will have the patient follow up with Dr. Hang Johnson for adjustment of his medication if needed. The bronchoscopy culture is still pending. He will need to follow up with Dr. Spencer Vasques, his inserter for further checkup on AFB culture and the bronchial wash culture as well. The patient was stable on discharge to home. Followup as an outpatient. Job#: [id number] [place]
== END 2017-11-19 16:29 | disposition home or self-care (01) | DRG 166 ==
LOC: ER 08:23 → ERHOLD 10:54 → MED/SURG2 18:31
PROVIDERS: ADMIT Internal Medicine; ATTEND Internal Medicine
PROC: 0BDC8ZX Extraction of Right Upper Lung Lobe, Via Natural or Artificial Opening Endoscopic, Diagnostic (ICD-10-PCS; 2017-11-16)
PROC: 0B9C8ZX Drainage of Right Upper Lung Lobe, Via Natural or Artificial Opening Endoscopic, Diagnostic (ICD-10-PCS; principal; 2017-11-16 09:00)
DX: J44.1 Chronic obstructive pulmonary disease with (acute) exacerbation (principal); J15.4 Pneumonia due to other streptococci; J15.0 Pneumonia due to Klebsiella pneumoniae; A15.9 Respiratory tuberculosis unspecified; M86.669 Other chronic osteomyelitis, unspecified tibia and fibula; J44.0 Chronic obstructive pulmonary disease with (acute) lower respiratory infection; R09.02 Hypoxemia; E78.5 Hyperlipidemia, unspecified; M19.90 Unspecified osteoarthritis, unspecified site; I10 Essential (primary) hypertension; J84.10 Pulmonary fibrosis, unspecified; E11.69 Type 2 diabetes mellitus with other specified complication
CPT/HCPCS: 36415; 71045; 71260; 74328; 80048; 80053; 81001; 82550; 82553; 83690; 84484; 85025; 85610; 85730; 87070; 87102; 87116; 87186; 87190; 87205; 87206; 87335; 88112; 88305; 88312; 89051; 93005; 94640; 97139; 99284; J0171; J0692; J1100; J2001; J2543; J2920; J3370; J7050; Q9967

== ENCOUNTER 2017-11-26 20:06 | Observation (INO) | payer OTHER ==
[~2017-11-26] VITALS: Ht 177.8 cm; Wt 73.0 kg
[2017-11-26] MEDS ORDERED: SODIUM CHLORIDE 0.9% 1000ML 1,000 ML IV ONE ×2 (20:45→23:30)
[2017-11-26 21:07] LABS: BASOPHILS # (AUTO) 0.1 (0.0-0.1); BASOPHILS % 0.2 % (0.0-1.0); EOSINOPHILS # (AUTO) 0.4 (0.0-0.4); EOSINOPHILS % 1.6 % (0.0-6.0); HEMATOCRIT 41.7 % (38.2-49.6); HEMOGLOBIN 13.6 g/dL (14.0-18.0); LYMPHOCYTES # (AUTO) 1.8 (1.0-3.2); LYMPHOCYTES % 7.5 % (18.0-39.1); MEAN CORPUSCULAR HEMOGLOBIN 28.2 pg (28-32); MEAN CORPUSCULAR HGB CONC 32.6 g/dL (31-35); MEAN CORPUSCULAR VOLUME 86.3 fL (81-99); MONOCYTES # (AUTO) 2.4 (0.2-0.8); MONOCYTES % 10.3 % (4.4-11.3); NEUTROPHILS # (AUTO) 18.8 (2.1-6.9); NEUTROPHILS % 79.5 % (38.7-80.0); PLATELET COUNT 394 x10e3/uL (140-360); RED BLOOD COUNT 4.83 x10e6/uL (4.3-5.7); RED CELL DISTRIBUTION WIDTH 14.3 % (11.7-14.4)
--- NOTE | 2017-11-26 21:16 | Diagnostic Imaging Report ---
CHEST SINGLE (PORTABLE), 11/26/2017 8:35 PM Technique: CHEST SINGLE (PORTABLE) Comparison: 11/18/2017 Clinical history: Shortness of breath Findings: Stable appearance of the cardiomediastinal silhouette, lungs and pleural spaces with pulmonary fibrotic changes. Impression: No significant change Signed by: Dr Aura Gorman MD on 11/26/2017 9:13 PM
[2017-11-26 21:23] LABS: ALANINE AMINOTRANSFERASE 11 IU/L (0-55); ALBUMIN 2.6 g/dL (3.5-5.0); ALBUMIN/GLOBULIN RATIO 0.6 (0.8-2.0); ALKALINE PHOSPHATASE 64 IU/L (40-150); ANION GAP 15.8 mmol/L (8-16); BLOOD UREA NITROGEN 16 mg/dL (7-26); BUN/CREATININE RATIO 25 (6-25); CALCIUM 9.3 mg/dL (8.4-10.2); CARBON DIOXIDE 24 mmol/L (22-29); CHLORIDE 100 mmol/L (98-107); CREATINE KINASE 22 IU/L (30-200); CREATININE, SERUM 0.63 mg/dL (0.72-1.25); EST GLOMERULAR FILTRATION RATE > 60 ML/MIN (60-); GLUCOSE 119 mg/dL (74-118); POTASSIUM 3.8 mmol/L (3.5-5.1); SODIUM 136 mmol/L (136-145)
[2017-11-26 22:24] LABS: CLARITY,URINE CLEAR (CLEAR); COLOR,URINE YELLOW (YELLOW); KETONES,URINE NEGATIVE (NEGATIVE); LEUKOCYTE ESTERASE ,URINE NEGATIVE (NEGATIVE); NITRITE,URINE NEGATIVE (NEGATIVE); PROTEIN,URINE DIPSTICK NEGATIVE (NEGATIVE)
[2017-11-26 22:25] LABS: BILIRUBIN,URINE NEGATIVE (NEGATIVE); URINE UROBILINOGEN 0.2 mg/dL (0.2 - 1)
[2017-11-26 22:34] LABS: BACTERIA,URINE RARE /HPF; EPITHELIAL CELLS,URINE RARE /LPF; HYALINE CASTS 0-1 (0-1); MUCUS,URINE MANY (RARE); RBC,URINE 0-5 /HPF (0-5)
[2017-11-26] MEDS ORDERED: ALBUTEROL/IPRATROPIUM 3 ML NEB NEB PRN (23:00)
[2017-11-26] MEDS ORDERED: ONDANSETRON HCL INJ 2 MG/ML VIAL IV PRN (23:00)
[2017-11-26] MEDS ORDERED: SODIUM CHLORIDE FLUSH 10 ML SYR INJ PRN (23:00)
[2017-11-26] MEDS ORDERED: SODIUM CHLORIDE 0.9% 1000ML 1,000 ML ONE (23:25)
[2017-11-26] MEDS ORDERED: SODIUM CHLORIDE 0.9% 50ML 50 ML ONE (23:27)
[2017-11-26] MEDS ORDERED: IOPAMIDOL 370 MG/ML 200 ML INFUS..BTL INJ ONE (23:28)
--- NOTE | 2017-11-27 00:18 | Diagnostic Imaging Report ---
EXAM: CT ABDOMEN/PELVIS W DATE: 11/26/2017 10:50 PM INDICATION: Leukocytosis COMPARISON: None TECHNIQUE: The abdomen and pelvis were scanned using a multidetector helical scanner. Coronal and sagittal reformations were obtained. IV Contrast: 100 ml Isovue 300/370 FINDINGS: Mildly degraded by streak artifact related to arm positioning. LOWER THORAX: Bibasilar reticular opacities and honeycombing in keeping with fibrosis. 6 mm and 15 mm right basilar nodular densities, similar to recent chest CT. LIVER/BILIARY: No masses. No ductal dilatation. GALLBLADDER: Unremarkable SPLEEN: Unremarkable PANCREAS: Unremarkable ADRENALS: No nodules KIDNEYS: Incidental too small to characterize renal hypodensities. Nonobstructing 7 mm right renal calculus. No hydronephrosis. GI TRACT: No wall thickening or evidence of obstruction. Diverticulosis. VESSELS: Moderate to severe atherosclerotic changes. There is a 2.6 cm saccular aneurysm of the right common iliac artery. PERITONEUM/RETROPERITONEUM: No free air or fluid. Incidental calcified epiploic appendage. LYMPH NODES: No lymphadenopathy REPRODUCTIVE ORGANS/BLADDER: Unremarkable SOFT TISSUES: Likely mild scarring along the anterior abdominal wall and subjacent peritoneum. Left inguinal and abdominal wall clips. BONES: Degenerative changes with grade 1 anterolisthesis of L4 over L5. IMPRESSION: 1. No acute abnormality. 2. 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 Signed by: Dr Aura Gorman MD on 11/27/2017 12:14 AM
[2017-11-27 00:30] VITALS: BP 100/51
[2017-11-27 00:33] VITALS: BP 104/68
[2017-11-27 04:00] VITALS: BP 105/52
[2017-11-27 07:47] LABS: BASOPHILS % 0.2 % (0.0-1.0); EOSINOPHILS # (AUTO) 0.6 (0.0-0.4); EOSINOPHILS % 3.7 % (0.0-6.0); HEMATOCRIT 37.3 % (38.2-49.6); HEMOGLOBIN 12.2 g/dL (14.0-18.0); LYMPHOCYTES # (AUTO) 1.6 (1.0-3.2); LYMPHOCYTES % 9.9 % (18.0-39.1); MEAN CORPUSCULAR HEMOGLOBIN 28.9 pg (28-32); MEAN CORPUSCULAR HGB CONC 32.7 g/dL (31-35); MEAN CORPUSCULAR VOLUME 88.4 fL (81-99); MONOCYTES # (AUTO) 1.8 (0.2-0.8); MONOCYTES % 10.8 % (4.4-11.3); NEUTROPHILS # (AUTO) 12.1 (2.1-6.9); NEUTROPHILS % 74.7 % (38.7-80.0); PLATELET COUNT 320 x10e3/uL (140-360); RED BLOOD COUNT 4.22 x10e6/uL (4.3-5.7); RED CELL DISTRIBUTION WIDTH 14.4 % (11.7-14.4)
[2017-11-27 08:02] LABS: ALANINE AMINOTRANSFERASE 9 IU/L (0-55); ALBUMIN 2.2 g/dL (3.5-5.0); ALBUMIN/GLOBULIN RATIO 0.6 (0.8-2.0); ALKALINE PHOSPHATASE 52 IU/L (40-150); ANION GAP 11.5 mmol/L (8-16); BLOOD UREA NITROGEN 10 mg/dL (7-26); BUN/CREATININE RATIO 18 (6-25); CALCIUM 8.3 mg/dL (8.4-10.2); CARBON DIOXIDE 27 mmol/L (22-29); CHLORIDE 102 mmol/L (98-107); CREATININE, SERUM 0.55 mg/dL (0.72-1.25); EST GLOMERULAR FILTRATION RATE > 60 ML/MIN (60-); GLUCOSE 92 mg/dL (74-118); POTASSIUM 3.5 mmol/L (3.5-5.1); SODIUM 137 mmol/L (136-145)
[2017-11-27 08:24] LABS: CREATINE KINASE MB 1.1 ng/mL (0-5.0)
[2017-11-27 08:30] VITALS: BP 101/52
--- NOTE | 2017-11-27 10:09 | History and Physical ---
Patient was placed in observation. PCP: Dr. Hang Johnson HISTORY: Patient is a 77-year-old male recently was here for exacerbation of the patient's interstitial lung disease. The patient was sent home with a steroid pack for which he just finished. Apparently, he went to see Dr. Hang Johnson, and had some blood work done. His white cell count was elevated. The patient was subsequently was told to go to the hospital. He did not complain of any chest pain or shortness breath. At baseline, the patient does use oxygen for his interstitial lung disease. No fever. No sign of infection. Urinalysis unremarkable. The patient's WBC in the emergency room was 23.7, and then subsequently within less than 12 hours repeated blood work showed his WBC now is 16.2. Patient is asymptomatic. No left shift. Patient is stable. PAST MEDICAL HISTORY: Please review previous recent history physical. PHYSICAL EXAMINATION VITAL SIGNS: Temperature is 97, blood pressure 105/52, pulse rate 52, respirations 18. GENERAL: The patient is not in acute distress. HEENT: Normocephalic, atraumatic and anicteric. NECK: Supple grossly. PULMONARY: Diminished breath sounds, but good air entry. No wheezing. CARDIOVASCULAR: S1 and S2. Regular rate and rhythm. ABDOMEN: Soft and unremarkable. EXTREMITIES: No cyanosis or edema. NEUROLOGIC: No focal deficit. LABORATORY: As mentioned. IMPRESSION 1. Leukocytosis most likely secondary to steroid consumption: Just finished the steroid pack. 2. Leukocytosis now diminished to 16.2 from 23.7, most likely secondary to steroids. Of note, the patient had a normal CT scan of the abdomen and pelvis. No changes. No lymphadenopathy. Chest x-ray otherwise unremarkable. No infiltrate. PLAN: Patient is to go home. Repeat his CBC in approximately 1 week. The patient is otherwise stable. No sign of infection. Job#: [id number] JEANETTE
--- NOTE | 2017-11-27 10:33 | Discharge Summary ---
PCP: Dr. Hang Johnson Patient will be discharged home today. Please review my brief history and physical. Patient is stable and discharged home. WBC went down from 23.7 to 16.2. Patient has no sign of infection. No left shift on the leukocytosis. Recommended the patient to resume home medications. Follow up with Dr. Hang Johnson. Repeat CBC in approximately 1 week. Job#: [id number] [place]
[2017-11-27 15:05] LABS: EOSINOPHILS % (MANUAL) 1 % (0-7); HYPOCHROMASIA SLIGHT; LYMPHOCYTES % (MANUAL) 13 % (19-48); MONOCYTES % (MANUAL) 15 % (3.4-9.0); NEUTROPHILS % (MANUAL) 70 % (40-74); PLATELET ESTIMATE ADEQUATE; PLATELET MORPHOLOGY COMMENT NORMAL
== END 2017-11-27 11:23 | disposition home or self-care (01) ==
LOC: ER 20:06 → ERHOLD 23:01 → IMCU 11-27 00:11
PROVIDERS: ADMIT Internal Medicine; ATTEND Internal Medicine
DX: D72.829 Elevated white blood cell count, unspecified (principal); J84.9 Interstitial pulmonary disease, unspecified
CPT/HCPCS: 36415 ×2; 71045; 74177; 80053 ×2; 81001; 82550 ×2; 82553 ×2; 83605; 83880; 84484 ×2; 85025 ×2; 87040; 87086; 93005; 99284; G0378 ×2; J7030; Q9967